=== PATIENT | female | born 1980 | race Two or more races ===

== ENCOUNTER → 2018-03-26 | Outpatient (CLI) | payer OTHER ==
[2018-03-26 09:42] LABS: ABSOLUTE BASOPHILS # (AUTO) 0.1 10^3/uL (0.0-0.2); ABSOLUTE EOSINOPHILS # (AUTO) 0.2 10^3/uL (0.0-0.6); ABSOLUTE LYMPHOCYTES (AUTO) 2.2 10^3/uL (0.5-4.7); ABSOLUTE MONOCYTES (AUTO) 0.5 10^3/uL (0.1-1.4); ABSOLUTE NEUT (AUTO) 5.1 10^3/uL (1.7-8.2); BASOPHILS % (AUTO) 0.7 % (0-2); EOSINOPHILS % (AUTO) 2.2 % (0-6); HEMATOCRIT 43.6 % (36.0-47.0); HEMOGLOBIN 15.2 g/dL (12.0-15.5); LYMPHOCYTES % (AUTO) 27.4 % (13-45); MEAN CORPUSCULAR HEMOGLOBIN 28.5 pg (27.0-33.4); MEAN CORPUSCULAR HGB CONC 34.8 g/dL (32.0-36.0); MEAN CORPUSCULAR VOLUME 82 fl (80-97); MONOCYTES % (AUTO) 5.8 % (3-13); PLATELET COUNT 300 10^3/uL (150-450); RED BLOOD COUNT 5.33 10^6/uL (3.72-5.28); RED CELL DISTRIBUTION WIDTH 13.5 % (11.5-14.0); SEGMENTED NEUTROPHILS % (AUTO) 63.9 % (42-78); TOTAL CELLS COUNTED % (AUTO) 100 %; WHITE BLOOD COUNT 7.9 10^3/uL (4.0-10.5)
[2018-03-26 10:00] LABS: ALANINE AMINOTRANSFERASE 56 U/L (9-52); ALBUMIN 4.2 g/dL (3.5-5.0); ALKALINE PHOSPHATASE 133 U/L (38-126); ANION GAP 9 (5-19); ASPARTATE AMINO TRANSFERASE 40 U/L (14-36); BILIRUBIN,DIRECT 0.2 mg/dL (0.0-0.4); BILIRUBIN,TOTAL 0.7 mg/dL (0.2-1.3); BLOOD UREA NITROGEN 10 mg/dL (7-20); CALCIUM 9.1 mg/dL (8.4-10.2); CARBON DIOXIDE 27 mmol/L (22-30); CHLORIDE 105 mmol/L (98-107); GLUCOSE 177 mg/dL (75-110); POTASSIUM 4.3 mmol/L (3.6-5.0); SODIUM 141.4 mmol/L (137-145); TOTAL PROTEIN 7.2 g/dL (6.3-8.2); TRIGLYCERIDES 163 mg/dL (<150)
[2018-03-26 10:01] LABS: CHOLESTEROL 173.44 mg/dL (0-200)
[2018-03-26 10:12] LABS: DIRECT LDL 112 mg/dL (<100)
[2018-03-26 10:17] LABS: VLDL CHOLESTEROL 32.6 mg/dL (10-31)
== END ==
LOC: OD 08:49
DX: E11.9 Type 2 diabetes mellitus without complications (principal); B18.2 Chronic viral hepatitis C
CPT/HCPCS: 36415; 80053; 80061; 81270; 83036; 84443; 85025

== ENCOUNTER 2018-11-19 22:14 | Emergency (ER) | payer OTHER ==
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
[2018-11-20 00:42] VITALS: BP 140/80
== END 2018-11-20 00:38 | disposition home or self-care (01) ==
LOC: ER 22:14
DX: S60.812A Abrasion of left wrist, initial encounter (principal); M25.532 Pain in left wrist; W50.4XXA Accidental scratch by another person, initial encounter; Y92.199 Unspecified place in other specified residential institution as the place of occurrence of the external cause; Y99.0 Civilian activity done for income or pay
CPT/HCPCS: 99283; 73110; L3908

== ENCOUNTER 2019-03-04 17:28 | Emergency (ER) | payer SELFPAY ==
[2019-03-04] MEDS ORDERED: DIPHENHYDRAMINE HCL 50 MG/ML VIAL IV ONE ×2 (18:48→22:54)
[2019-03-04] MEDS ORDERED: METOCLOPRAMIDE HCL INJ/PF 10 MG/2 ML SDV IV ONE (18:48)
[2019-03-04] MEDS ORDERED: NORMAL SALINE 1000 ML 1,000 ML IV ONE (18:48)
[2019-03-04] MEDS ORDERED: KETOROLAC TROMETHAMINE INJ/PF 30 MG/1 ML SDV IV ONE ×2 (18:48→22:55)
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
[2019-03-04 19:17] LABS: ABSOLUTE BASOPHILS # (AUTO) 0.1 10^3/uL (0.0-0.2); ABSOLUTE EOSINOPHILS # (AUTO) 0.2 10^3/uL (0.0-0.6); ABSOLUTE LYMPHOCYTES (AUTO) 2.7 10^3/uL (0.5-4.7); ABSOLUTE MONOCYTES (AUTO) 0.6 10^3/uL (0.1-1.4); ABSOLUTE NEUT (AUTO) 4.9 10^3/uL (1.7-8.2); BASOPHILS % (AUTO) 0.8 % (0-2); EOSINOPHILS % (AUTO) 2.3 % (0-6); HEMATOCRIT 46.1 % (36.0-47.0); HEMOGLOBIN 15.6 g/dL (12.0-15.5); LYMPHOCYTES % (AUTO) 31.8 % (13-45); MEAN CORPUSCULAR HEMOGLOBIN 28.1 pg (27.0-33.4); MEAN CORPUSCULAR HGB CONC 33.7 g/dL (32.0-36.0); MEAN CORPUSCULAR VOLUME 83 fl (80-97); MONOCYTES % (AUTO) 7.3 % (3-13); PLATELET COUNT 288 10^3/uL (150-450); RED BLOOD COUNT 5.54 10^6/uL (3.72-5.28); SEGMENTED NEUTROPHILS % (AUTO) 57.8 % (42-78); TOTAL CELLS COUNTED % (AUTO) 100 %; WHITE BLOOD COUNT 8.4 10^3/uL (4.0-10.5)
[2019-03-04 19:43] LABS: ALBUMIN 4.1 g/dL (3.5-5.0); ALKALINE PHOSPHATASE 131 U/L (38-126); ANION GAP 9 (5-19); ASPARTATE AMINO TRANSFERASE 22 U/L (14-36); BILIRUBIN,DIRECT 0.2 mg/dL (0.0-0.4); BILIRUBIN,TOTAL 0.3 mg/dL (0.2-1.3); BLOOD UREA NITROGEN 16 mg/dL (7-20); CALCIUM 9.4 mg/dL (8.4-10.2); CARBON DIOXIDE 25 mmol/L (22-30); CHLORIDE 105 mmol/L (98-107); GLUCOSE 280 mg/dL (75-110); POTASSIUM 4.6 mmol/L (3.6-5.0); TOTAL PROTEIN 7.3 g/dL (6.3-8.2)
--- NOTE | 2019-03-04 19:51 | RADIOLOGY REPORT (SQ) ---
EXAM DESCRIPTION: CT HEAD WITHOUT COMPLETED DATE/TIME: 03/04/2019 7:35 pm REASON FOR STUDY: severe MARCELINO, hx of TBI COMPARISON: None. TECHNIQUE: Axial images acquired through the brain without intravenous contrast. Images reviewed wi th bone, brain and subdural windows. Additional sagittal and coronal reconstructions were generated. Images stored on PACS. All CT scanners at this facility use dose modulation, iterative reconstruction, and/or weight based d osing when appropriate to reduce radiation dose to as low as reasonably achievable (ALARA). [facility]: Dose Right [facility]: CareDose [facility]: Dose Right [facility]: Teradose 4D [facility]: Smart Universal Biosensors RADIATION DOSE: CT Rad equipment meets quality standard of care and radiation dose reduction techniq ues were employed. CTDIvol: 53.2 mGy. DLP: 1044 mGy-cm. mGy. LIMITATIONS: None. FINDINGS: VENTRICLES: Normal size and contour. CEREBRUM: No masses. No hemorrhage. No midline shift. No evidence for acute infarction. Normal gra y/white matter differentiation. No areas of low density in the white matter. CEREBELLUM: No masses. No hemorrhage. No alteration of density. No evidence for acute infarction. EXTRAAXIAL SPACES: No fluid collections. No masses. ORBITS AND GLOBE: No intra- or extraconal masses. Normal contour of globe without masses. CALVARIUM: No fracture. PARANASAL SINUSES: No fluid or mucosal thickening. SOFT TISSUES: No mass or hematoma. OTHER: No other significant finding. IMPRESSION: NORMAL BRAIN CT WITHOUT CONTRAST. EVIDENCE OF ACUTE STROKE: NO. COMMENT: Quality ID # [id number]: Final reports with documentation of one or more dose reduction techniques (e.g., Automated exposure control, adjustment of the mA and/or kV according to patient size, use of iterative reconstruction technique) TECHNICAL DOCUMENTATION: JOB ID: [id number] [employer]- All Rights Reserved Reading location - IP/workstation name: [email or web address]
[2019-03-04 20:01] LABS: ERYTHROCYTE SEDIMENTATION RATE 18 mm/hr (0-20)
[2019-03-04] MEDS ORDERED: PROCHLORPERAZINE EDISYLATE INJ 10 MG/2 ML VIAL IV ONE (22:53)
--- NOTE | 2019-03-04 23:01 | ER Document Report ---
ED General - General Chief Complaint: Headache Stated Complaint: POSSIBLE MIGRAINE Time Seen by Provider: 03/04/19 18:37 Primary Care Provider: ALANNAH TURNER MD [Primary Care Provider] - Follow up as needed TRAVEL OUTSIDE OF THE [place] IN LAST 30 DAYS: No - Related Data Allergies/Adverse Reactions: morphine Allergy (Verified 11/19/18 22:50) Past Medical History - Social History Smoking Status: Never Smoker Frequency of alcohol use: None Drug Abuse: None Family History: Reviewed & Not Pertinent Patient has suicidal ideation: No Patient has homicidal ideation: No - Immunizations Immunizations up to date: Yes Physical Exam - Vital signs Vitals: Temp Pulse Resp BP Pulse Ox 98.8 F 83 18 141/82 H 98 03/04/19 17:48 03/04/19 17:48 03/04/19 17:48 03/04/19 17:48 03/04/19 17:48 - Notes Notes: Patient presents emerge department a frontal headache that is been gone for the past 3 days. Headache came on gradually got progressively worse. Is not thunderclap headache or worst headache she is ever had. She says this is worse than her typical migraines but again not the worst headache is ever had. She had a little blurry vision but no nausea vomiting fevers numbness or weakness in extremities. Ports intermittent headaches over the past 3 years after having a traumatic brain injury do not stand up quickly while taking the Flomax/Hytrin as the medicine can cause dizziness and result in a fall Please medical history sent for diabetes does not follow her sugar. She has history of hypertension. Social history does not smoke or drink LMP now review of systems pertinent positives and negatives in HPI otherwise all the systems were reviewed and acutely negative PHYSICIAN EXAM -vital signs are noted triage note and note from triage reviewed GENERAL: Well-appearing, well-nourished and in __mild distress____ HEAD: Atraumatic, normocephalic. EYES: Pupils equal round and reactive to light, extraocular movements intact, no nystagmus or photophobia sclera anicteric, conjunctiva are normal. ENT: nares patent, oropharynx clear without exudates. Moist mucous membranes. Nontender NECK: supple without lymphadenopathy or no meningeal signs LUNGS: Breath sounds clear to auscultation bilaterally and equal. No wheezes rales or rhonchi. HEART: Regular rate and rhythm without murmurs ABDOMEN: Soft, nontender, normoactive bowel sounds. EXTREMITIES: No deformity, no edema. NEUROLOGICAL: Alert and oriented x4. Cranial nerves he has symmetrical smile facies and shoulder shrug. His motor strength is 5/5 bilaterally in the upper and lower extremities. Toes downgoing. Sensation is intact to light touch and pinprick is a negative Romberg and normal gait PSYCH: Normal mood, normal affect. SKIN: Warm, Dry, normal turgor, no rashes or lesions noted. BACK-nontender in the midline Differential diagnosis migraine tension headache Course - Re-evaluation Re-evalutation: 03/05/19 00:54 ED patient is remained stable. She has significant provement of her symptoms after medications. Continues to have a nonfocal neurological exam Medical decision making patient with a history of headaches and status post medic brain injury presents with a headache similar to her previous ones. CT is negative she has a nonfocal neurological exam she is feeling better and can be discharged home advises that she will need follow-up for her blood pressure and sugar At this time there is no indication for admission. I have discussed the findings with patient/family with return precautions and follow-up emerson mmendations. Verbal discharge instructions given at the bedside and opportunity for questions given. Medication warnings were given if indicated. Patient is in agreement with this plan and has verbalized understanding of return precautions and the need for primary care follow-up as directed.. - Vital Signs Vital signs: Temp Pulse Resp BP Pulse Ox 98.8 F 83 18 141/82 H 98 03/04/19 17:48 03/04/19 17:48 03/04/19 17:48 03/04/19 17:48 03/04/19 17:48 - Laboratory Result Diagrams: 03/04/19 19:04 03/04/19 19:04 Laboratory results interpreted by me: 03/04/19 03/04/19 03/04/19 19:04 19:04 23:24 RBC 5.54 H Hgb 15.6 H Glucose 280 H POC Glucose 250 H Alkaline Phosphatase 131 H - Diagnostic Test Radiology reviewed: Reports reviewed Discharge - Discharge Clinical Impression: Headache Qualifiers: Headache type: other headache syndrome Qualified Code(s): G44.89 - Other hea dache syndrome Diabetes Qualifiers: Diabetes mellitus type: type 2 Diabetes mellitus intermodal dispatcher insulin use: without intermodal dispatcher use Condition: Stable Disposition: HOME, SELF-CARE Instructions: Intravenous Compazine for Headaches ([facility]), Headache ([facility]) Additional Instructions: Headache The physician does not feel that the headache you are experiencing has a serious underlying cause. Most headaches are due to emotional stress, with resultant muscle tension (tension headache). Occasionally, headaches are secondary to changes in the blood vessels of the scalp (vascular headache and migraine headache). Sometimes, a headache is the first symptom of another developing illness, such as a viral infection. You have no evidence of stroke, bleeding, meningitis, or other serious cause of your headache. The treatment of headaches varies with the severity and cause of the pain. Not all headaches need pain shots. In fact, there is evidence that using narcotics for headaches may make them worse in the long run. The physician will determine the therapy that's in your best interest. If you develop a fever, if the headache is different from any you've previously experienced, or if the headache progressively worsens, then call your physician at once or go to the emergency room. Your blood pressure was elevated today needs to be rechecked again in 1 to 2 weeks to determine if need to be on medication or have your medications adjusted. Untreated hypertension can cause heart attack stroke and kidney failure Your sugar was elevated today needs to be rechecked again in 1 week. You can follow-up in the care clinic Follow-up in the clinic clinic in 1 to 2 days if not better otherwise in 1 week Make sure you take Benadryl with the Compazine Prescriptions: Prochlorperazine Maleate [Compazine 5 Mg Tablet] 5 mg PO QID PRN #8 tablet PRN Reason: Forms: Elevated Blood Pressure Referrals: ALANNAH TURNER MD [Primary Care Provider] - Follow up as needed [facility] [Provider Group] - Follow up in 1 week (1 to 2 days if not better otherwise in 1 week to recheck your sugar and blood pressure)
[2019-03-05 01:25] VITALS: BP 125/67
== END 2019-03-05 01:33 | disposition home or self-care (01) ==
LOC: ER 17:28
DX: G44.89 Other headache syndrome (principal); E11.9 Type 2 diabetes mellitus without complications; Z88.6 Allergy status to analgesic agent
CPT/HCPCS: 99284; 96361; 96374; 96375; 36415; 82962; 85025; 85652; 80053; 70450; J1200; J1885; J0780; J7030

== ENCOUNTER 2019-04-09 08:17 | Emergency (ER) | payer MEDICAID ==
--- NOTE | 2019-04-09 09:32 | ER Document Report ---
HPI - HPI Time Seen by Provider: 04/09/19 09:26 Pain Level: 1 Notes: Patient is a 38-year-old female with a history of type 2 diabetes who is approximately 5 weeks presents complaining of urinary frequency over the past 2 days. Patient states that she may have a UTI and came for evaluation. Patient states that her sugars have been in the 200s which is normal for her. She is able to eat and drink without difficulty. She is urinating normally and having normal bowel movements. No other concerns or complaints at this time. She has no vaginal bleeding, odor, or discharge. No lower pelvic pain. Denies any headache, fever, neck pain, URI, sore throat, chest pain, palpitations, syncope, cough, shortness of breath, wheeze, dyspnea, abdominal pain, nausea/vomiting/diarrhea, urinary retention, hematuria, loss of control of bowel or bladder, numbness/tingling, saddle anesthesia, muscle paralysis/weakness, or rash. - ROS Systems Reviewed and Negative: Yes All other systems reviewed and negative - REPRODUCTIVE Reproductive: REPORTS: : Past Medical History - Social History Smoking Status: Never Smoker Family History: Reviewed & Not Pertinent Patient has suicidal ideation: No Patient has homicidal ideation: No Endocrine Medical History: Reports: Hx Diabetes Mellitus Type 2 Past Surgical History: Reports: Hx Section, Hx Cholecystectomy, Hx Orthopedic Surgery - Immunizations Immunizations up to date: Yes Vertical Provider Document - CONSTITUTIONAL Agree With Documented VS: Yes Notes: PHYSICAL EXAMINATION: GENERAL: Well-appearing, well-nourished and in no acute distress. HEAD: Atraumatic, normocephalic. EYES: Pupils equal round and reactive to light, extraocular movements intact, sclera anicteric, conjunctiva are normal. ENT: Nares patent and without discharge. oropharynx clear without exudates. No tonsilar hypertrophy or erythema. Moist mucous membranes. NECK: Normal range of motion, supple without lymphadenopathy LUNGS: Breath sounds clear to auscultation bilaterally and equal. No wheezes rales or rhonchi. HEART: Regular rate and rhythm without murmurs, rubs, gallops. ABDOMEN: Soft, nontender, nondistended abdomen. No guarding, no rebound. Normal bowel sounds present. No CVA tenderness bilaterally. Musculoskeletal: FROM to passive/active. Strength 5+/5. Extremities: No cyanosis, clubbing, or edema b/l. Peripheral pulses 2+. Capillary refill less than 3 seconds. NEUROLOGICAL: Normal speech, normal gait. PSYCH: Normal mood, normal affect. SKIN: Warm, Dry, normal turgor, no rashes or lesions noted. - INFECTION CONTROL TRAVEL OUTSIDE OF THE [place] IN LAST 30 DAYS: No Course - Re-evaluation Re-evalutation: 04/09/19 10:48 Patient is an afebrile, well-hydrated, 38-year-old female who presents to the ED with an acute UTI. Vitals are acceptable without any significant tachycardia, tachypnea, or hypoxia. PE is otherwise unremarkable. Patient's abdomen is soft and nontender. She has no CVA tenderness bilaterally. See urinalysis results. Urine culture is pending. No other labs or imaging warranted at this time based on H&P. Low suspicion/risk for acute appendicitis, bowel obstruction, acute cholecystitis, acute cholangitis, perforated diverticulitis, incarcerated hernia, pancreatitis, perforated ulcer, peritonitis, sepsis, pelvic inflammatory disease, ectopic , tubo-ovarian abscess, ovarian torsion, or other systemic emergent condition at this time. Patient is aware that her condition can change from initial presentation and she needs to monitor symptoms closely and seek medical attention if any acute changes. I will send her home with a prescription for Keflex. Conservative measures otherwise for symptoms. Recheck with your PCM in 3-5 days. Consider consult with a Urologist. Return to the ED with any worsening/concerning symptoms otherwise as reviewed in discharge. Patient is in agreement. - Vital Signs Vital signs: Temp Pulse Resp BP Pulse Ox 98.8 F 75 18 136/78 H 99 04/09/19 08:42 04/09/19 08:42 04/09/19 08:42 04/09/19 08:42 04/09/19 08:42 Discharge - Discharge Clinical Impression: Acute UTI (urinary tract infection) Condition: Stable Disposition: HOME, SELF-CARE Instructions: Cephalexin ([facility]), Urinary Tract Infection ([facility]) Additional Instructions: Push fluids (i.e. water, cranberry juice) Proper hygenic technique Keep the skin clean Tylenol/ibuprofen as needed Take medications as directed F/u with your PCM in 3-5 days for a recheck Consider consult with a Urologist for ongoing/worsening symptoms. Return to the ED with any worsening symptoms and/or development of fever, headache, chest pain, palpitations, syncope, shortness of breath, trouble breathing, abdominal pain, n/v/d, blood in stool/urine, loss of control of bowel/bladder, urinary retention, or other worsening symptoms that are concerning to you. Prescriptions: Cephalexin Monohydrate [Keflex 500 mg Capsule] 500 mg PO TID #21 capsule Forms: Elevated Blood Pressure Referrals: ALANNAH TURNER MD [Primary Care Provider] - Follow up as needed [facility] [Provider Group] - Follow up as needed
[2019-04-09 10:43] LABS: APPEARANCE,URINE SLIGHTLY-CLOUDY; BILIRUBIN,URINE NEGATIVE (NEGATIVE); COLOR,URINE YELLOW; GLUCOSE, URINE >=500 mg/dL (NEGATIVE); KETONES,URINE 20 mg/dL (NEGATIVE); LEUKOCYTE ESTERASE,URINE MODERATE (NEGATIVE); NITRITE,URINE POSITIVE (NEGATIVE); PROTEIN,URINE NEGATIVE (NEGATIVE); URINE SPECIFIC GRAVITY 1.017; UROBILINOGEN,URINE NEGATIVE mg/dL (<2.0)
[2019-04-09 11:04] VITALS: BP 134/82
== END 2019-04-09 10:57 | disposition home or self-care (01) ==
LOC: ER 08:17
DX: N39.0 Urinary tract infection, site not specified (principal); E11.9 Type 2 diabetes mellitus without complications; Z90.49 Acquired absence of other specified parts of digestive tract
CPT/HCPCS: 81001; 82962; 87086; 87088; 87186; 99283

== ENCOUNTER 2019-06-02 14:57 | Emergency (ER) | payer MEDICAID ==
--- NOTE | 2019-06-02 15:40 | ER Document Report ---
ED GI/ - General Chief Complaint: Vaginal Bleeding Stated Complaint: VAGINAL BLEEDING/12 WEEKS Time Seen by Provider: 06/02/19 15:13 Primary Care Provider: [facility] [Provider Group] - Follow up as needed Mode of Arrival: Ambulatory Information source: Patient Notes: 39-year-old female presented to ED for complaint of vaginal bleeding and pr egnancy. She states she is 12 weeks 6 para 4. She states the bleeding started just before coming to the emergency room. She states she is not having any pain at all she is just having bleeding. She states she was seen about 3 weeks ago and had a ultrasound but she is concerned due to the amount of bleeding. She is alert oriented respirations regular nonlabored speaking in ful l sentences. TRAVEL OUTSIDE OF THE [place] 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 : 6 Para: 4 OB ultrasound done: Yes Associated symptoms: Other - No bleeding Exacerbated by: Denies Relieved by: Denies Similar symptoms previously: Yes Recently seen / treated by doctor: Yes - Related Data Allergies/Adverse Reactions: morphine Allergy (Verified 04/09/19 09:19) Home Medications: Metformin Past Medical History - General Information source: Patient - Social History Smoking Status: Never Smoker Frequency of alcohol use: None Drug Abuse: None Lives with: Family Family History: Reviewed & Not Pertinent Patient has suicidal ideation: No Patient has homicidal ideation: No - Past Medical History Cardiac Medical History: Reports: None Pulmonary Medical History: Reports: None EENT Medical History: Reports: None Endocrine Medical History: Reports: Hx Diabetes Mellitus Type 2 Renal/ Medical History: Reports: None Malignancy Medical History: Reports: None GI Medical History: Reports: None Musculoskeletal Medical History: Reports Hx Musculoskeletal Deformity Skin Medical History: Reports None Psychiatric Medical History: Reports: None Traumatic Medical History: Reports: None Infectious Medical History: Reports: None Past Surgical History: Reports: Hx Section, Hx Cholecystectomy, Hx Orthopedic Surgery - Coello's cyst - Immunizations Immunizations up to date: Yes Review of Systems - Review of Systems Constitutional: No symptoms reported EENT: No symptoms reported Cardiovascular: No symptoms reported Respiratory: No symptoms reported Gastrointestinal: No symptoms reported Genitourinary: No symptoms reported Female Genitourinary: , Vaginal bleeding Musculoskeletal: No symptoms reported Skin: No symptoms reported Hematologic/Lymphatic: No symptoms reported Neurological/Psychological: No symptoms reported Physical Exam - Vital signs Vitals: Temp Pulse Resp BP Pulse Ox 98.1 F 88 16 117/82 99 06/02/19 15:00 06/02/19 15:00 06/02/19 15:00 06/02/19 15:00 06/02/19 15:00 Interpretation: Normal - General General appearance: Appears well, Alert - HEENT Head: Normocephalic, Atraumatic Eyes: Normal Pupils: PERRL - Respiratory Respiratory status: No respiratory distress Chest status: Nontender Breath sounds: Normal Chest palpation: Normal - Cardiovascular Rhythm: Regular Heart sounds: Normal auscultation Murmur: No - Abdominal Inspection: Normal Distension: No distension Bowel sounds: Normal Tenderness: Nontender Organomegaly: No organomegaly - Back Back: Normal, Nontender - Extremities General upper extremity: Normal inspection, Nontender, Normal color, Normal ROM, Normal temperature General lower extremity: Normal inspection, Nontender, Normal color, Normal ROM, Normal temperature, Normal weight bearing. No: Jason's sign - Neurological Neuro grossly intact: Yes Cognition: Normal Orientation: AAOx4 Abilio Coma Scale Eye Opening: Spontaneous Abilio Coma Scale Verbal: Oriented Kirk Coma Scale Motor: Obeys Commands Kirk Coma Scale Total: 15 Speech: Normal Motor strength normal: LUE, RUE, LLE, RLE Sensory: Normal - Psychological Associated symptoms: Normal affect, Normal mood - Skin Skin Temperature: Warm Skin Moisture: Dry Skin Color: Normal Course - Re-evaluation Re-evalutation: 06/03/19 01:15 Labs and ultrasound were discussed with patient and written report of labs and ultrasound given to patient before discharge. 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 Patient ultra sound does show a live intrauterine . - Vital Signs Vital signs: Temp Pulse Resp BP Pulse Ox 97.7 F 84 17 130/80 H 98 06/02/19 18:49 06/02/19 18:49 06/02/19 18:49 06/02/19 18:49 06/02/19 18:49 - Laboratory Result Diagrams: 06/02/19 16:47 06/02/19 16:47 Laboratory results interpreted by me: 06/02/19 06/02/19 06/02/19 15:35 16:47 16:47 RDW 14.4 H Sodium 136.2 L Chloride 111 H Carbon Dioxide 17 L Creatinine 0.37 L Beta HCG, Quant 48995.00 H Urine Protein 100 H Urine Glucose (UA) 50 H Urine Ketones 20 H Urine Blood LARGE H Urine Urobilinogen 2.0 H - Diagnostic Test Radiology reviewed: Image reviewed, Reports reviewed Discharge - Discharge Clinical Impression: Vaginal bleeding affecting early , Herpes Condition: Stable Disposition: HOME, SELF-CARE Additional Instructions: : You are . care is best started as early in as possible. If you're unsure about continuing this , you should discuss this with your physician or with water filterer helper at [facility]. You should take only medications approved by your physician. Acetaminophen can safely be taken for minor pains. As a rule, medication for chronic conditions such as asthma or seizures can safely be continued. You should discuss with the physician every medicine you take. Any regular exercise program can be continued. Talk to your physician, however, before engaging in competitive or demanding sports. Alcohol, smoking, and "street drugs" are dangerous to your baby. Cocaine is especially dangerous. Don't use any illicit drugs! BLEEDING DURING EARLY : You have been evaluated for passing blood while . While we take this symptom very seriously, most women with your degree of bleeding will go on to have a perfectly normal baby. At this time, there is no indication that a miscarriage will occur. (A miscarriage occurs when the fetus is abnormal. There is no medicine or treatment to prevent it.) A more serious cause of bleeding is tubal (or ectopic) . An ultrasound usually can show whether the is in the uterus or in the tube. Sometimes in early , no fetus is seen. In this case, careful fol low-up, including repeat blood tests and repeat ultrasound, is necessary. Do not douche or have sex for at least a week, or until OK'd by the doctor. Don't use tampons. Call the doctor or return for re-examination if there is an increase in bleeding or cramping, extreme weakness, fainting, new abdominal pain, fever, or passage of tissue. Your rash looks to be a herpetic rash. I have started you on Valtrex. Please take 1000 mg 3 times a day for 7 days. I have sent the prescription to the pharmacy you selected. FOLLOW-UP CARE: If you have been referred to a physician for follow-up care, call the physicians office for an appointment as you were instructed or within the next two days. If you experience worsening or a significant change in your symptoms (very heavy bleeding with large clots of blood, passage of tissue, more severe abdominal / pelvic pain or cramping, feeling faint or severe weakness, fever, etc.), notify the physician immediately or return to the Emergency Department at any time for re-evaluation. OBSTETRIC-GYNECOLOGIC (OB-PROFESSOR OF NURSING) PHYSICIANS IN [place]: [facility] [address] [place] [address] [phone] Prescriptions: Valacyclovir HCl [Valtrex] 1,000 mg PO TID #21 tablet Forms: Return to Work, Elevated Blood Pressure Referrals: [facility] [Provider Group] - Follow up as needed
[2019-06-02 16:26] LABS: BILIRUBIN,URINE NEGATIVE (NEGATIVE); GLUCOSE, URINE 50 mg/dL (NEGATIVE); KETONES,URINE 20 mg/dL (NEGATIVE); PROTEIN,URINE 100 mg/dL (NEGATIVE); URINE SPECIFIC GRAVITY 1.029
[2019-06-02 16:27] LABS: APPEARANCE,URINE TURBID; COLOR,URINE RED
[2019-06-02 16:51] LABS: BACTERIA (WET MOUNT) 4+ BACTERIA SEEN; EPITHELIALS (WET MOUNT) 3+ EPITHELIALS SEEN; RBCS (WET MOUNT) 2+ RBCS SEEN; T.VAGINALIS (WET MOUNT) NO TRICHOMONAS SEEN; WBCS (WET MOUNT) 3+ WBCS SEEN; YEAST (WET MOUNT) NO YEAST SEEN
[2019-06-02 17:07] LABS: ABSOLUTE EOSINOPHILS # (AUTO) 0.1 10^3/uL (0.0-0.6); ABSOLUTE MONOCYTES (AUTO) 0.6 10^3/uL (0.1-1.4); ABSOLUTE NEUT (AUTO) 6.6 10^3/uL (1.7-8.2); BASOPHILS % (AUTO) 0.3 % (0-2); EOSINOPHILS % (AUTO) 1.4 % (0-6); HEMATOCRIT 41.7 % (36.0-47.0); HEMOGLOBIN 14.6 g/dL (12.0-15.5); LYMPHOCYTES % (AUTO) 21.1 % (13-45); MEAN CORPUSCULAR HEMOGLOBIN 29.3 pg (27.0-33.4); MEAN CORPUSCULAR HGB CONC 35.1 g/dL (32.0-36.0); MEAN CORPUSCULAR VOLUME 84 fl (80-97); MONOCYTES % (AUTO) 6.5 % (3-13); PLATELET COUNT 252 10^3/uL (150-450); RED BLOOD COUNT 4.99 10^6/uL (3.72-5.28); RED CELL DISTRIBUTION WIDTH 14.4 % (11.5-14.0); SEGMENTED NEUTROPHILS % (AUTO) 70.7 % (42-78); TOTAL CELLS COUNTED % (AUTO) 100 %; WHITE BLOOD COUNT 9.4 10^3/uL (4.0-10.5)
--- NOTE | 2019-06-02 17:08 | RADIOLOGY REPORT (SQ) ---
EXAM DESCRIPTION: U/S OB TRANSVAGINAL W/O DOP IMAGES COMPLETED DATE/TIME: 06/02/2019 4:30 pm REASON FOR STUDY: vag bleed preg COMPARISON: None. TECHNIQUE: Transvaginal static and realtime grayscale images acquired of the pelvis. Additional isaias cted spectral and color Doppler images recorded. All images stored on PACs. bHCG: Not available. CLINICAL DATES: NICOLE: 12/10/2019. EGA: 03/05/2019. LIMITATIONS: None. FINDINGS: FETUS: Single Living intrauterine . ULTRASOUND EGA: 13 weeks 1 day ULTRASOUND NICOLE: 12/07/2019 EFW: Not applicable less than 20 weeks. CRL: 6.54 cm FHR: 160 beats per minute. SURVEY: No visualized anomalies. AMNIOTIC FLUID: Adequate amount. PLACENTA: Not yet developed due to early gestation. SUBCHORIONIC BLEED: No. SIZE OF BLEED: Not applicable. UTERUS: The uterus measures 12.2 x 7.6 x 11.7 cm. No masses. No anomalies. CERVICAL LENGTH: 3.6 cm. Closed. Nabothian cyst in the cervix region. RIGHT ADNEXA: Not visualized due to overlying bowel gas. LEFT ADNEXA: The left ovary measures 3.3 x 2.4 x 3.5 cm. A complex 1.6 x 1.5 x 1.8 cm ovarian cyst may represent corpus luteum cyst of . No free fluid. Normal vascular flow. FREE FLUID: None. OTHER: No other significant finding. IMPRESSION: LIVING INTRAUTERINE . EGA: 13 weeks 1 day Additional findings as above. Trimester of : Second trimester - 13 weeks 1 day to 27 weeks 6 days. TECHNICAL DOCUMENTATION: JOB ID: [id number] [employer]- All Rights Reserved rev Reading location - IP/workstation name: SHA
[2019-06-02 17:24] LABS: ALBUMIN 3.7 g/dL (3.5-5.0); ALKALINE PHOSPHATASE 90 U/L (38-126); ANION GAP 8 (5-19); ASPARTATE AMINO TRANSFERASE 23 U/L (14-36); BILIRUBIN,TOTAL 0.3 mg/dL (0.2-1.3); BLOOD UREA NITROGEN 10 mg/dL (7-20); CALCIUM 8.9 mg/dL (8.4-10.2); CARBON DIOXIDE 17 mmol/L (22-30); CHLORIDE 111 mmol/L (98-107); GLUCOSE 106 mg/dL (75-110); POTASSIUM 3.8 mmol/L (3.6-5.0); TOTAL PROTEIN 6.5 g/dL (6.3-8.2)
[2019-06-02 18:21] LABS: CHLAM PCR NOT DETECTED (NOT DETECT)
[2019-06-02 18:50] VITALS: BP 130/80
[2019-06-02] MEDS ORDERED: VALACYCLOVIR HCL 500 MG TABLET PO ONE (18:51)
== END 2019-06-02 18:57 | disposition home or self-care (01) ==
LOC: ER 14:57
DX: O98.511 Other viral diseases complicating pregnancy, first trimester (principal); B00.9 Herpesviral infection, unspecified; O20.9 Hemorrhage in early pregnancy, unspecified; E11.9 Type 2 diabetes mellitus without complications; Z3A.12 12 weeks gestation of pregnancy; Z79.84 Long term (current) use of oral hypoglycemic drugs; Z90.49 Acquired absence of other specified parts of digestive tract
CPT/HCPCS: 99284; 86900; 86901; 36415; 87210; 84702; 85025; 80053; 81001; 87491; 87591; 76817; J3490

== ENCOUNTER 2019-08-03 11:57 | Outpatient (CLI) | payer MEDICAID ==
[2019-08-03 12:32] LABS: BACTERIA (WET MOUNT) 4+ BACTERIA SEEN; EPITHELIALS (WET MOUNT) 4+ EPITHELIALS SEEN; T.VAGINALIS (WET MOUNT) NO TRICHOMONAS SEEN; WBCS (WET MOUNT) 1+ WBCS SEEN; YEAST (WET MOUNT) NO YEAST SEEN
[2019-08-03 12:46] LABS: COLOR,URINE YELLOW
[2019-08-03 12:47] LABS: APPEARANCE,URINE CLEAR; BILIRUBIN,URINE NEGATIVE (NEGATIVE); GLUCOSE, URINE NEGATIVE (NEGATIVE); KETONES,URINE 25 mg/dL (NEGATIVE); LEUKOCYTE ESTERASE,URINE NEGATIVE (NEGATIVE); NITRITE,URINE NEGATIVE (NEGATIVE); PROTEIN,URINE NEGATIVE (NEGATIVE); URINE SPECIFIC GRAVITY 1.015; UROBILINOGEN,URINE NEGATIVE mg/dL (<2.0)
[2019-08-03 12:56] LABS: URINE AMPHETAMINES SCREEN NEGATIVE; URINE BARBITURATES SCREEN NEGATIVE; URINE BENZODIAZEPINES SCREEN NEGATIVE; URINE COCAINE SCREEN NEGATIVE; URINE MARIJUANA (THC) SCREEN NEGATIVE; URINE METHADONE SCREEN NEGATIVE; URINE PHENCYCLIDINE SCREEN NEGATIVE
== END 2019-08-03 13:09 | disposition home or self-care (01) ==
LOC: LC 11:57
PROVIDERS: ATTEND Obstetrics & Gynecology
DX: O23.592 Infection of other part of genital tract in pregnancy, second trimester (principal); B96.89 Other specified bacterial agents as the cause of diseases classified elsewhere; Z3A.22 22 weeks gestation of pregnancy
CPT/HCPCS: 80307; 81001; 87210

== ENCOUNTER 2019-10-07 23:47 | Outpatient (CLI) | payer MEDICAID ==
[2019-10-08 00:32] LABS: APPEARANCE,URINE CLOUDY; BILIRUBIN,URINE NEGATIVE (NEGATIVE); COLOR,URINE YELLOW; GLUCOSE, URINE NEGATIVE (NEGATIVE); KETONES,URINE TRACE mg/dL (NEGATIVE); LEUKOCYTE ESTERASE,URINE SMALL (NEGATIVE); NITRITE,URINE NEGATIVE (NEGATIVE); PROTEIN,URINE 30 mg/dL (NEGATIVE); URINE SPECIFIC GRAVITY 1.026
[2019-10-08] MEDS ORDERED: ACETAMINOPHEN 325 MG TABLET PO ONE (00:32)
[2019-10-08] MEDS ORDERED: ACETAMINOPHEN 325 MG TABLET ONE (00:33)
[2019-10-08 00:49] LABS: URINE AMPHETAMINES SCREEN NEGATIVE; URINE BARBITURATES SCREEN NEGATIVE; URINE BENZODIAZEPINES SCREEN NEGATIVE; URINE COCAINE SCREEN NEGATIVE; URINE MARIJUANA (THC) SCREEN NEGATIVE; URINE METHADONE SCREEN NEGATIVE; URINE PHENCYCLIDINE SCREEN NEGATIVE
[2019-10-08] MEDS ORDERED: BUTALB/ACETAMINOPHEN/CAFFEINE 1 TAB EACH ONE (01:24)
== END 2019-10-08 02:32 | disposition home or self-care (01) ==
LOC: LC 23:47
PROVIDERS: ATTEND Obstetrics & Gynecology
DX: Z34.93 Encounter for supervision of normal pregnancy, unspecified, third trimester (principal)
CPT/HCPCS: 81001; 80307; 59899; J3490 ×2

== ENCOUNTER 2019-10-24 10:45 | Outpatient (CLI) | payer MEDICAID ==
[2019-10-24 11:21] LABS: T.VAGINALIS (WET MOUNT) NO TRICHOMONAS SEEN; WBCS (WET MOUNT) RARE WBCS SEEN; YEAST (WET MOUNT) NO YEAST SEEN
[2019-10-24 11:34] LABS: APPEARANCE,URINE CLOUDY; BILIRUBIN,URINE NEGATIVE (NEGATIVE); COLOR,URINE AMBER; GLUCOSE, URINE NEGATIVE (NEGATIVE); KETONES,URINE NEGATIVE (NEGATIVE); LEUKOCYTE ESTERASE,URINE LARGE (NEGATIVE); NITRITE,URINE NEGATIVE (NEGATIVE); PROTEIN,URINE 30 mg/dL (NEGATIVE); URINE SPECIFIC GRAVITY 1.025
[2019-10-24 11:48] LABS: URINE AMPHETAMINES SCREEN NEGATIVE; URINE BARBITURATES SCREEN NEGATIVE; URINE BENZODIAZEPINES SCREEN NEGATIVE; URINE COCAINE SCREEN NEGATIVE; URINE MARIJUANA (THC) SCREEN NEGATIVE; URINE METHADONE SCREEN NEGATIVE; URINE PHENCYCLIDINE SCREEN NEGATIVE
[2019-10-24] MEDS ORDERED: CEFTRIAXONE INJ 1000 MG VIAL IV ONE (11:48)
[2019-10-24] MEDS ORDERED: RINGERS SOLUTION,LACTATED 1,000 ML IV PRN (11:48)
[2019-10-24] MEDS ORDERED: CEFTRIAXONE INJ 1000 MG VIAL ONE (11:55)
[2019-10-24] MEDS ORDERED: OXYCODONE-ACETAMINOPHEN 5-325 MG TABLET ONE (11:56)
[2019-10-24] MEDS ORDERED: CEFTRIAXONE 1 GM/D5W RTU 1 GM/50 ML RTUPB IV ONE (12:00)
[2019-10-24] MEDS: OXYCODONE-ACETAMINOPHEN 5-325 MG TABLET PO ONE ×2 (12:17→12:42)
[2019-10-24] MEDS ORDERED: PROMETHAZINE HCL INJ 25 MG/1 ML VIAL IV ONE (12:19)
[2019-10-24] MEDS ORDERED: PROMETHAZINE HCL INJ 25 MG/1 ML VIAL ONE (12:20)
[2019-10-24 12:54] LABS: CHLAM PCR NOT DETECTED (NOT DETECT)
--- NOTE | 2019-10-24 13:58 | L&D Progress Notes ---
PROGRESS NOTES Datetime Report Generated by CPN: 10/24/2019 13:58 PROGRESS NOTE Impression Other: Abdominal pain Plan: Discharge Vital Signs : Reviewed Comment: She presents with uterine contraction pains. Her pain worsens with walking and she feels better now. Her gallbladder has been removed. Abdomen is soft and gravid. We will take her off work. Fhr looks good for 33 wk . She has had percocet and phenergan here. Will treat for uti with macrobid. Followup on Friday. VAGINAL EXAM Dilatation: closed Effacement: thick Station: high FETUS A FHR - Baseline: 120 SIGNATURE SIGNATURE: [id number] Signature: with User ID: [email or web address]
[2019-10-24] MEDS ORDERED: FAMOTIDINE 40 MG/5 ML SUSP 50 ML PO ONE (14:33)
[2019-10-24] MEDS ORDERED: FAMOTIDINE 20 MG TABLET ONE (14:45)
[2019-10-24] MEDS ORDERED: MAG HYDROX/AL HYDROX/SIMETH SUSP 30 ML UDCUP ONE (14:45)
[2019-10-24] MEDS ORDERED: MAG HYDROX/AL HYDROX/SIMETH SUSP 30 ML UDCUP PO ONE (15:00)
[2019-10-24] MEDS ORDERED: FAMOTIDINE 20 MG TABLET PO ONE (15:00)
[2019-10-24] MEDS ORDERED: LIDOCAINE 2% VISCOUS SOLN 15 ML UDCUP PO ONE (15:00)
--- NOTE | 2019-10-24 15:33 | Non Stress Test Report ---
Non Stress Test Datetime Report Generated by CPN: 10/24/2019 15:33 DEMOGRAPHIC Test Number: 1 EGA NST: 33.2 INDICATION Indication for Study (NST) Other: NST for labor check MONITORING Monitor Explained: Monitor Explained; Test Explained; Patient Verbalized Understanding Time on Monitor: 10/24/2019 13:30 Time off Monitor: 10/24/2019 15:18 NST Duration: 108 NST INTERVENTIONS NST Interventions: PO Hydration; Reposition Patient Physician Notified NST: Dr. Simith BABY A: [id number] BABY A Movement : Present Contraction Frequency : rare FHR Baseline : 135 Accelerations : 15X15 Decelerations : Variable Variability : Moderate 6-25bpm NST Review: Meets Criteria for Reactive NST NST Review and Verified By : Skip Chopra RN NST Results: Reactive NST COMMENTS NST Comments: MD on unit reviewing FHT strip NST REPORT Report Trigger: Send Report
== END 2019-10-24 15:30 | disposition home or self-care (01) ==
LOC: LC 10:45
PROVIDERS: ATTEND Obstetrics & Gynecology
DX: O23.43 Unspecified infection of urinary tract in pregnancy, third trimester (principal); O47.03 False labor before 37 completed weeks of gestation, third trimester; O36.8330 Maternal care for abnormalities of the fetal heart rate or rhythm, third trimester, not applicable or unspecified; O24.913 Unspecified diabetes mellitus in pregnancy, third trimester; O09.523 Supervision of elderly multigravida, third trimester; Z3A.33 33 weeks gestation of pregnancy; Z88.6 Allergy status to analgesic agent
CPT/HCPCS: 59025; 87210; 82962; 81001; 80307; 87491; 87591; J3490 ×3; J2550; J0696

== ENCOUNTER 2019-10-26 14:54 | Outpatient (CLI) | payer MEDICAID ==
[2019-10-26 15:51] LABS: APPEARANCE,URINE SLIGHTLY-CLOUDY; BILIRUBIN,URINE NEGATIVE (NEGATIVE); COLOR,URINE YELLOW; GLUCOSE, URINE NEGATIVE (NEGATIVE); KETONES,URINE 80 mg/dL (NEGATIVE); LEUKOCYTE ESTERASE,URINE SMALL (NEGATIVE); NITRITE,URINE NEGATIVE (NEGATIVE); PROTEIN,URINE 30 mg/dL (NEGATIVE); URINE SPECIFIC GRAVITY 1.023
[2019-10-26 15:54] LABS: ABSOLUTE BASOPHILS # (AUTO) 0.1 10^3/uL (0.0-0.2); ABSOLUTE EOSINOPHILS # (AUTO) 0.1 10^3/uL (0.0-0.6); ABSOLUTE LYMPHOCYTES (AUTO) 1.5 10^3/uL (0.5-4.7); ABSOLUTE MONOCYTES (AUTO) 0.7 10^3/uL (0.1-1.4); ABSOLUTE NEUT (AUTO) 5.3 10^3/uL (1.7-8.2); BASOPHILS % (AUTO) 0.7 % (0-2); EOSINOPHILS % (AUTO) 1.2 % (0-6); HEMOGLOBIN 13.4 g/dL (12.0-15.5); LYMPHOCYTES % (AUTO) 19.7 % (13-45); MEAN CORPUSCULAR HEMOGLOBIN 29.9 pg (27.0-33.4); MEAN CORPUSCULAR HGB CONC 34.3 g/dL (32.0-36.0); MEAN CORPUSCULAR VOLUME 87 fl (80-97); MONOCYTES % (AUTO) 8.7 % (3-13); PLATELET COUNT 221 10^3/uL (150-450); RED BLOOD COUNT 4.48 10^6/uL (3.72-5.28); RED CELL DISTRIBUTION WIDTH 13.8 % (11.5-14.0); SEGMENTED NEUTROPHILS % (AUTO) 69.7 % (42-78); TOTAL CELLS COUNTED % (AUTO) 100 %; WHITE BLOOD COUNT 7.6 10^3/uL (4.0-10.5)
[2019-10-26 16:13] LABS: URINE AMPHETAMINES SCREEN NEGATIVE; URINE BARBITURATES SCREEN NEGATIVE; URINE BENZODIAZEPINES SCREEN NEGATIVE; URINE COCAINE SCREEN NEGATIVE; URINE MARIJUANA (THC) SCREEN NEGATIVE; URINE METHADONE SCREEN NEGATIVE; URINE PHENCYCLIDINE SCREEN NEGATIVE
[2019-10-26 16:13] LABS: ALBUMIN 3.2 g/dL (3.5-5.0); ALKALINE PHOSPHATASE 124 U/L (38-126); ANION GAP 11 (5-19); ASPARTATE AMINO TRANSFERASE 18 U/L (14-36); BILIRUBIN,DIRECT 0.2 mg/dL (0.0-0.4); BILIRUBIN,TOTAL 0.4 mg/dL (0.2-1.3); BLOOD UREA NITROGEN 8 mg/dL (7-20); CALCIUM 8.2 mg/dL (8.4-10.2); CARBON DIOXIDE 16 mmol/L (22-30); CHLORIDE 110 mmol/L (98-107); GLUCOSE 70 mg/dL (75-110); POTASSIUM 3.7 mmol/L (3.6-5.0); TOTAL PROTEIN 5.8 g/dL (6.3-8.2); URIC ACID 3.7 mg/dL (2.5-7.0)
[2019-10-26 16:17] LABS: UR PRO/CREAT RATIO RESULT 0.1 mg/mg (0.0-0.2); URINE CREATININE 114.5 mg/dL (15-278); URINE PROTEIN 13.6 mg/dL (<12)
== END 2019-10-26 16:40 | disposition home or self-care (01) ==
LOC: LC 14:54
PROVIDERS: ATTEND Obstetrics & Gynecology
DX: O26.893 Other specified pregnancy related conditions, third trimester (principal); Z3A.33 33 weeks gestation of pregnancy; E86.0 Dehydration
CPT/HCPCS: 36415; 59025; 80053; 80307; 81001; 82570; 83615; 84156; 84550; 85025

== ENCOUNTER 2019-11-21 04:01 | Inpatient (IN) | payer MEDICAID ==
[2019-11-21 04:33] LABS: APPEARANCE,URINE SLIGHTLY-CLOUDY; BILIRUBIN,URINE NEGATIVE (NEGATIVE); COLOR,URINE YELLOW; GLUCOSE, URINE NEGATIVE (NEGATIVE); KETONES,URINE NEGATIVE (NEGATIVE); LEUKOCYTE ESTERASE,URINE LARGE (NEGATIVE); NITRITE,URINE NEGATIVE (NEGATIVE); PROTEIN,URINE 30 mg/dL (NEGATIVE); URINE SPECIFIC GRAVITY 1.023; UROBILINOGEN,URINE NEGATIVE mg/dL (<2.0)
[2019-11-21] MEDS ORDERED: MISOPROSTOL 0.2 MG TABLET ONE (04:41)
[2019-11-21] MEDS ORDERED: OXYTOCIN/0.9 % SODIUM CHLORIDE 30 UNIT/500 ML RTUINJ ONE ×2 (04:41→12:35)
[2019-11-21] MEDS ORDERED: LIDOCAINE 1% INJ-PF (10 MG/ML) 30 ML SDV ONE (04:41)
[2019-11-21] MEDS: RINGERS SOLUTION,LACTATED 1,000 ML IV PRN ×4 (04:52→21:09)
[2019-11-21 04:53] LABS: URINE AMPHETAMINES SCREEN NEGATIVE; URINE BARBITURATES SCREEN NEGATIVE; URINE BENZODIAZEPINES SCREEN NEGATIVE; URINE COCAINE SCREEN NEGATIVE; URINE MARIJUANA (THC) SCREEN NEGATIVE; URINE METHADONE SCREEN NEGATIVE; URINE PHENCYCLIDINE SCREEN NEGATIVE
[2019-11-21 05:18] LABS: ABSOLUTE BASOPHILS # (AUTO) 0.1 10^3/uL (0.0-0.2); ABSOLUTE EOSINOPHILS # (AUTO) 0.2 10^3/uL (0.0-0.6); ABSOLUTE LYMPHOCYTES (AUTO) 1.5 10^3/uL (0.5-4.7); ABSOLUTE MONOCYTES (AUTO) 0.6 10^3/uL (0.1-1.4); ABSOLUTE NEUT (AUTO) 6.3 10^3/uL (1.7-8.2); BASOPHILS % (AUTO) 0.7 % (0-2); EOSINOPHILS % (AUTO) 1.8 % (0-6); HEMATOCRIT 37.5 % (36.0-47.0); HEMOGLOBIN 13.1 g/dL (12.0-15.5); LYMPHOCYTES % (AUTO) 17.6 % (13-45); MEAN CORPUSCULAR HEMOGLOBIN 30.3 pg (27.0-33.4); MEAN CORPUSCULAR HGB CONC 34.8 g/dL (32.0-36.0); MEAN CORPUSCULAR VOLUME 87 fl (80-97); MONOCYTES % (AUTO) 6.6 % (3-13); PLATELET COUNT 199 10^3/uL (150-450); RED BLOOD COUNT 4.32 10^6/uL (3.72-5.28); RED CELL DISTRIBUTION WIDTH 14.1 % (11.5-14.0); SEGMENTED NEUTROPHILS % (AUTO) 73.3 % (42-78); TOTAL CELLS COUNTED % (AUTO) 100 %; WHITE BLOOD COUNT 8.6 10^3/uL (4.0-10.5)
--- NOTE | 2019-11-21 06:54 | Admission Physical ---
Datetime Report Generated by CPN: 11/21/2019 06:53 CURRENT ADMISSION Chief Complaint: Uterine Contractions; Suspected Ruptured Membranes Indication for Induction: PROM Admit Impression : Term, Intrauterine ; No Active Labor; Ruptured Membranes; Admit Impression- Other: G1 was emergent c/section and had PPH "I arrested after the c/section and woke up in the ICU." Has had 2 successful since Admit Plan: Admit to Unit; Initiate Labor Induction Protocol; Initiate Protocol ALLERGIES Medication Allergies: Yes Medication Allergies: morphine (10/26/2019) Latex: No Latex Allergies OBSTETRICAL HISTORY EDC: 12/10/2019 00:00 : 6 Para: 4 Term: 2 : 2 SAB: 1 IAB: 0 Ectopic: 0 Livin Cesareans: 1 VBACs: 2 Multiple Births: 0 Gestational Diabetes: Yes Rh Sensitization: No Incompetent Cervix: No LUIS: No Infertility: No ART Treatment: No Uterine Anomaly: No IUGR: No Hx Previous C/S: Yes Macrosomia: No Hx Loss/Stillborn: No PIH: Yes Hx : No Placenta Previa/Abruption: No Depression/PP Depression: No PTL/PROM: Yes Post Hemorrhage: Yes Current Procedures: Ultrasound Obstetrical History Comments: G1: 1999, , male, pre-eclampsia @ 31/32 weeks G2: 2003, emergency c/s @ 35 weeks, male, NRFHTs, hemorrhage and cardiac arrest, infection in c/s wound G3: 2005, , male @ 37 weeks G4: 2008, , female @ 40 weeks, precip delivery in [facility], GDM (BTL???) G5: 2011, SAB G6: current, type 2 diabetic SEE RECORDS Alcohol: No Marijuana : No Cocaine: No Other Illicit Drugs: No Cigarettes: Never Smoker. [id number] Cigarette Comments: 0 MEDICAL HISTORY Diabetes: Yes Diabetes Type: Type II - NIDDM Blood Transfusion: Yes Pulmonary Disease (Asthma, TB): No Breast Disease: No Hypertension: Yes Crew Person Surgery: No Heart Disease: No Hosp/Surgery: Yes Autoimmune Disorder: No Anesthetic Complications: Yes Kidney Disease: No Abnormal Pap Smear: No Neuro/Epilepsy: Other Medical Diseases: No Significant Family History: No Trauma/Violence : No Medical History Comments: AMA, shingles during ; gallbladder removal; comes out of anesthesia "violently" INFECTIOUS HISTORY Gonorrhea: No Genital Herpes: No Chlamydia: No Tuberculosis: No Syphilis: No Hepatitis: No HIV/AIDS Exposure: No Rash or Viral Illness: No HPV: Yes Infectious History Comments: hep C + PHYSICAL EXAM General: Normal HEENT: Normal Neurologic: Normal Thyroid: Normal Heart: Normal Lungs: Normal Breast: Normal Back: Normal Abdomen: Normal Genitourinary Exam: Normal Extremities: Normal DTRs: Normal Pelvic Type: Adequate Physical Exam Comments: SOLOMON confirmed with bedside sono performed by me to confirm ROM Vital Signs: Reviewed; Within Normal Limits VAGINAL EXAM Dilatation: 1 Effacement: 25 Station: -3 MEMBRANES Pooling: Negative Membranes: Ruptured Amniotic Fluid Color: Clear FETUS A EGA: 37.2 Monitoring: External US FHR- Baseline: 130 Variability: Moderate 6-25bpm Accelerations: 15X15 Decelerations: None FHR Category: Category I Estimated Weight (gm): 3400 Presentation: Vertex Admit Comment: proceed with planned with 1x1 pitocin and roldan bulb if no cervical change. PLANS FOR LABOR AND DELIVERY Labor and Delivery: None Pain Management: Epidural Feeding Preference: Both Benefit of Breast Feed Discussed: Yes Circumcision: Yes INFORMED CONSENT Signature: with User ID: [email or web address]
[2019-11-21] MEDS ORDERED: GLUCAGON,HUMAN RECOMB 1 MG INJ IM PRN ×2 (07:26→07:31)
[2019-11-21] MEDS ORDERED: DEXTROSE 50%-WATER 25 GM/50 ML DISP.SYRIN IV PRN ×4 (07:26→07:31)
[2019-11-21] MEDS ORDERED: DEXTROSE 40% GEL 15 GM TUBE PO PRN ×4 (07:26→07:31)
[2019-11-21] MEDS: INSULIN REG, HUMAN 100 UNIT/ML 3 ML VIAL (PYX) SUBCUT SCH ×3 (07:36→17:25)
[2019-11-21] MEDS ORDERED: MAG HYDROX/AL HYDROX/SIMETH SUSP 30 ML UDCUP PO ONE (07:41)
[2019-11-21] MEDS ORDERED: MAG HYDROX/AL HYDROX/SIMETH SUSP 30 ML UDCUP ONE (07:45)
[2019-11-21] MEDS ORDERED: OXYTOCIN/NORMAL SALINE 500 ML IV PRN (08:40)
[2019-11-21] MEDS ORDERED: DEXTROSE 5%-1/2 NORMAL SALINE 500 ML IV PRN (09:29)
[2019-11-21] MEDS ORDERED: NALBUPHINE HCL INJ 10 MG/1 ML AMPULE INJ ONE (10:46)
[2019-11-21] MEDS ORDERED: PROMETHAZINE HCL INJ 25 MG/1 ML VIAL IV ONE (10:46)
[2019-11-21] MEDS ORDERED: NALBUPHINE HCL INJ 10 MG/1 ML AMPULE ONE (10:58)
[2019-11-21] MEDS ORDERED: PROMETHAZINE HCL INJ 25 MG/1 ML VIAL ONE ×2 (10:58→14:31)
[2019-11-21] MEDS ORDERED: NORMAL SALINE 250 ML IV PRN ×2 (12:14)
[2019-11-21] MEDS ORDERED: CEFAZOLIN 2 GM/D5W RTU 2 GM/50 ML RTUPB IV ONE (12:15)
[2019-11-21] MEDS ORDERED: CITRIC ACID/SODIUM CITRATE ORAL SOLN 15 ML UDCUP ONE (12:15)
[2019-11-21] MEDS ORDERED: METHYLERGONOVINE MALEATE INJ/PF 0.2 MG/1 ML AMPULE ONE (12:27)
[2019-11-21] MEDS ORDERED: LOPERAMIDE HCL 2 MG CAPSULE ONE (12:27)
[2019-11-21] MEDS ORDERED: CARBOPROST TROMETHAMINE INJ 250 MCG/1 ML AMPULE ONE (12:27)
[2019-11-21] MEDS ORDERED: MIDAZOLAM 2 MG/2 ML INJ ONE (12:34)
[2019-11-21] MEDS ORDERED: FENTANYL CITRATE INJ/PF 100 MCG/2 ML AMPUL ONE ×4 (12:34→15:23)
[2019-11-21] MEDS ORDERED: MORPHINE SULFATE 10 MG/ML INJ ONE (12:34)
[2019-11-21] MEDS ORDERED: OXYTOCIN 10 UNIT/ML VIAL ONE (12:34)
[2019-11-21] MEDS ORDERED: ONDANSETRON HCL INJ/PF 4 MG/2 ML SDV ONE (12:35)
[2019-11-21] MEDS ORDERED: PROMETHAZINE HCL INJ 25 MG/1 ML VIAL IV PRN ×3 (13:12→14:19)
[2019-11-21] MEDS ORDERED: MEPERIDINE HCL/PF INJ 25 MG/1 ML DISP.SYRIN IV PRN (13:12)
[2019-11-21] MEDS ORDERED: ONDANSETRON HCL INJ/PF 4 MG/2 ML SDV IV PRN (13:12)
[2019-11-21] MEDS ORDERED: DIPHENHYDRAMINE HCL 50 MG/ML VIAL IV PRN (13:12)
[2019-11-21] MEDS ORDERED: FENTANYL CITRATE INJ/PF 100 MCG/2 ML AMPUL IV PRN ×2 (13:12)
[2019-11-21] MEDS ORDERED: DIPH/PERTUSS(ACELL)/TETANUS VAC/PF 0.5 ML SYR (>=10YO) IM PRN (14:19)
[2019-11-21] MEDS ORDERED: OXYCODONE-ACETAMINOPHEN 5-325 MG TABLET PO PRN (14:19)
[2019-11-21] MEDS ORDERED: RINGERS SOLUTION,LACTATED 1,000 ML IV PRN (14:19)
[2019-11-21] MEDS ORDERED: ACETAMINOPHEN 1,000 MG/100 ML RTUPB IV PRN (14:19)
[2019-11-21] MEDS ORDERED: MEASLES,MUMPS&RUBELLA VACC/PF 0.5 ML VIAL SUBCUT PRN (14:19)
[2019-11-21] MEDS ORDERED: SIMETHICONE 80 MG TAB.CHEW PO PRN (14:19)
[2019-11-21] MEDS ORDERED: OXYTOCIN/0.9 % SODIUM CHLORIDE 30 UNIT/500 ML RTUINJ IV PRN (14:19)
[2019-11-21] MEDS ORDERED: ACETAMINOPHEN 325 MG TABLET PO PRN (14:19)
[2019-11-21] MEDS ORDERED: HYDROMORPHONE HCL INJ/PF 2 MG/ML AMPULE ONE (14:31)
--- NOTE | 2019-11-21 14:31 | Operative Report ---
Operative Report DATE OF SURGERY: 11/21/19 PREOPERATIVE DIAGNOSIS: IUP at 37 weeks and 2 days, premature rupture of membra jakub, nonreassuring heart tones, previous , undesired fertility, previous tubal ligation POSTOPERATIVE DIAGNOSIS: Same OPERATION: Repeat low transverse hysterotomy section with Metz tubal ligation SURGEON: BETTYE WAITE ANESTHESIA: Spinal TISSUE REMOVED OR ALTERED: Placenta and bilateral fallopian tube segments COMPLICATIONS: None ESTIMATED BLOOD LOSS: 1000 cc INTRAOPERATIVE FINDINGS: Dense fascial adhesions multiple adhesions of the small bowel to the posterior aspect of the uterus bladder adhesed to the lower uterine segmentm both fallopian tubes had no evidence of previous tubal ligation, one clip was found on the left ovary, there were multiple filmy adhesions of the fallopian tubes to the uterine fundus however it was evident that the fallopian tubes were indeed patent PROCEDURE: The patient was taken to the operating room, prepared and draped in anormal sterile fashion in a supine position with a leftward tilt. A transverse skin incision was made with a scalpel and carried through tothe underlying layer of fascia with the same scalpel. The fascia was excised in the midline and extended laterally with Milady. The fascia was then dissected from the rectus muscle sharply with Milady and the rectus muscle was divided and the peritoneal cavity was entered sharply with the same Metzenbaum. With good visualization of the bladder and the uterus the bladder blade was inserted. The hysterotomy was nicked with a scalpel and extended laterally with surgeon finger fraction. The infant was thendelivered atraumatically. The nose and mouth were suctioned with a suction bulb, the cord was clamped and cut and handed off to awaiting pediatricians. Cord blood was collected. The placenta was removed manually. The uterus was exteriorized and cleared of clots and debris. The hysterotomy was closed with 0 Monocryl in a running, locked fashion. A second layer of the same suture was used to imbricate to ensure hemostasis. Attention was then turned to the fallopian tubes where the right fallopian tube was grasped with a Cathy, the mesosalpinx was divided with a Bovie. a 3-1/2 cm segment of fallopian tube was tied off with 2 pieces of 2-0 chromic.this segment was ligated using Metzenbaums and the pedicles were made hemostatic with the Bovie. This procedure was repeated on the left fallopian tube without difficulty. The uterus was returned to the abdomen and peritoneal cavity was cleared of clots and debris. The pedicles were inspected and they were still hemostatic. The rectus muscle and peritoneum were repaired with mattress stitch of 2-0 Chromic. The fascia was closed with 0-Vicryl. The subcutaneous layer was closed with plain catgut and the skin was closed with 4-0 Vicryl. The patient tolerated the procedure well. Sponge, lap, and needle counts correct x2 and the patient was taken to recovery in stable condition.
[2019-11-21] MEDS: FENTANYL CITRATE INJ/PF 100 MCG/2 ML AMPUL IV PRN ×2 (15:24→15:30)
[2019-11-21] MEDS ORDERED: ACETAMINOPHEN 1,000 MG/100 ML RTUPB IV ONE (15:32)
--- NOTE | 2019-11-21 16:16 | Delivery Summary ---
Del Sum A-C Datetime Report Generated by CPN: 11/21/2019 16:16 DELIVERY PERSONNEL DELIVERY PERSONNEL: [id number] Delivery Doctor:: Hyacinth Montiel MD CHARGE LOADER:: August Harley CRNA Graduate Advisor:: Meka Chopra, RN Lathe Spotter/FIXED CAPITAL CLERK: Geno Blanchard, HEALTH ADMINISTRATION TEACHER Lathe Spotter/FIXED CAPITAL CLERK: Francesca Oseguera, HEALTH ADMINISTRATION TEACHER MATERNAL INFORMATION Delivery Anesthesia: Spinal Medications After Delivery: Pitocin Drip 20 Units/1000ml NSS Delivery QBL: 780 Maternal Complications: None LABOR SUMMARY EDC: 12/10/2019 00:00 No. Babies in Womb: 1 Attempted: Yes Labor Anesthesia: None LABOR INFORMATION Reason for Induction: Not Applicable Oxytocin: Augmentation Group B Beta Strep: negative Antibiotics # of Doses: 1 Antibiotics Time of Last Dose: 11/21/2019 12:56 Name of Antibiotic Given: Ancef 2 gm Steroids Given: None Reason Steroids Not Administered: Not Applicable MEMBRANES Membranes Rupture Method: Spontaneous Rupture of Membranes: 11/20/2019 22:00 Length of Rupture (hr): 15.48 Amniotic Fluid Color: Clear Amniotic Fluid Amount: Small Amniotic Fluid Odor: Normal STAGES OF LABOR Stage 3 hr: 0 Stage 3 min: 1 VAGINAL DELIVERY Episiotomy: None Laceration #1: None Laceration Extension #1: N/A Laceration Repair: Not Applicable Sponge Count Correct: N/A Sharps Count Correct: N/A CSECTION DELIVERY Primary Indication: Nonreassuring Status CSection Urgency: Non-Scheduled CSection Incidence: Repeat Labor: No Labor Elective: Failed CSection Incision: Lower Uterine Transverse Sterilization Procedure: [place] BABY A INFORMATION Infant Delivery Date/Time: 11/21/2019 13:29 Method of Delivery: Nurse Controlled Delivery: No Born in Route : No : Failed Forceps: N/A Vacuum Extraction: Successful Shoulder Dystocia : No ASSISTED DELIVERY BABY A Vacuum Number of Pulls: 1 Vacuum Number of PopOffs: 1 Vacuum Medical Office Coordinator: kiwi PRESENTATION/POSITION BABY A Presentation: Cephalic Cephalic Presentation: Vertex Breech Presentation: N/A PLACENTA INFORMATION BABY A Placenta Delivery Time : 11/21/2019 13:30 Placenta Method of Delivery: Manual Removal Placenta Status: Delivered SCORES BABY A Heart Rate 1 min: >100 bpm Resp Effort 1 min: Slow, Irregular Reflex Irritability 1 min: Cough or Sneeze or Pulls Away Muscle Tone 1 min: Active Motion Color 1 min: Blue/Pale Resuscitation Effort 1 min: Tactile Stimulation; Oxygen; PPV/NCPAP SCORE 1 MIN: 7 Heart Rate 5 min: >100 bpm Resp Effort 5 min: Good Cry Reflex Irritability 5 min: Cough or Sneeze or Pulls Away Muscle Tone 5 min: Active Motion Color 5 min: Blue/Pale Resuscitation Effort 5 min: Oxygen; PPV/NCPAP SCORE 5 MIN: 8 INFANT INFORMATION BABY A Gestational Age at Delivery: 37.2 Gestational Status: Early Term- 37- 38.6 Weeks Infant Outcome : Liveborn Infant Condition : Stable Sex: Male IDENTIFICATION BABY A Infant Verification Date/Time: 11/21/2019 13:37 ID Band Number: [id number] Mother's Name Verified: Yes Infant RN Verifying : Zachary Edge RN, C. Gallia RN WEIGHT/LENGTH BABY A Infant Birthweight (gm): 2800 Infant Weight (lb): 6 Infant Weight (oz): 3 Length (in): 19.50 Length (cm): 49.53 CORD INFORMATION BABY A No. Cord Vessels: 3 Nuchal Cord : N/A Cord Blood Taken: Yes-For Eval (Mom's Blood Type - or O+) Infant Suction: None ASSESSMENT BABY A Skin to Skin: Yes BABY B INFORMATION : N/A
--- NOTE | 2019-11-21 16:16 | Birth Certificate Data ---
Cert Data Datetime Report Generated by CPN: 11/21/2019 16:16 CERTIFICATE DATA 47a. Care: Yes (08/03/2019 12:04:Meka Chopra RN) 47b. Date of First Visit: 05/13/2019 00:00 (08/03/2019 12:04:Meka Chopra RN) 47c. Date of Last Visit: 11/18/2019 00:00 (08/03/2019 12:04:Elaine Higgins RN) 47d. Number of Visits: 14 (08/03/2019 12:04:Elaine Higgins RN) 48a. Number of Prev Live Births: 4 (08/03/2019 12:04:Meka Chopra RN) 48b. Now Livin (08/03/2019 12:04:Angelina Mclain RN) 48c. Live Births Now : 0 (08/03/2019 12:04:QS system process) 48d. Date of Last Live : 01/27/2009 00:00 (08/03/2019 12:04:Elaine Higgins RN) 48e. Losses: 1 (08/03/2019 12:04:Meka Chopra RN) RISK FACTORS IN THIS 49a. Diabetes: Yes (08/03/2019 12:04:Meka Chopra RN) Type of Diabetes: Type II - NIDDM (08/03/2019 12:04:Meka Chopra RN) 49b. Hypertension: Yes (08/03/2019 12:04:Meka Chopra RN) Type of Hypertension: Gestational (PIH, Pre-eclampsia) (08/03/2019 12:04:Elaine Higgins RN) 49c. Previous Births: 2 (08/03/2019 12:04:Angelina Mclain RN) 49d. Stillborns: No (08/03/2019 12:04:Meka Chopra RN) 49d. IUGR: No (08/03/2019 12:04:Meka Chopra RN) 49e. Infertility Treatment: No (08/03/2019 12:04:Elaine Higgins RN) 49f. Previous Cesareans: 1 (08/03/2019 12:04:Meka Chopra RN) Mother's Height 50b. Height Inches: 60 (10/26/2019 15:09:QS system process) Mother's Weight 51a. Pre- Weight (lbs): 188 (08/03/2019 12:04:Meka Chopra RN) 51b. Weight at Delivery (lbs): 178 (10/26/2019 15:23:QS system process) 52. Dt Last Normal Menses Began: 03/05/2019 00:00 (08/03/2019 12:04:Elaine Higgins RN) Infections Present/Treated 53a. Gonorrhea: No (08/03/2019 12:04:Elaine Higgins RN) Results this Hospital Visit : Negative (08/03/2019 12:04:Angeli Bunch RN) 53b. Syphilis: No (08/03/2019 12:04:Elaine Higigns RN) 53c. Chlamydia: No (08/03/2019 12:04:Elaine Higgins RN) Results this Hospital Visit: Negative (08/03/2019 12:04:Angeli Bunch RN) 53d. Hepatitis B: No (08/03/2019 12:04:Elaine Higgins RN) Results this Hospital Visit: Negative (08/03/2019 12:04:Angelina Mclain RN) 53e. Hepatitis C: Positive (08/03/2019 12:04:Meka Chopra RN) 53h. Mother Tested for HBsAG: Yes (08/03/2019 12:04:Meka Chopra RN) 53i. Date Tested: 05/13/2019 00:00 (08/03/2019 12:04:Angeli Bunch RN) 53j. Test Result: Negative (08/03/2019 12:04:Angelina Mclain RN) Obstetric Procedures 54a, b, c. Obstetric Procedures: Ultrasound (08/03/2019 12:04:Elaine Higgins RN) Cigarette Smoking Cigarette Smoking: Never Smoker. [id number] (08/03/2019 12:04:Shasha De LaO RN) 55a. 3 Months Before Preg - Ci (08/03/2019 12:04:Elaine Higgins RN) 55a. Packs: 0 (08/03/2019 12:04:Elaine Higgins RN) 55b. 1st Trimester of Preg- Ci (08/03/2019 12:04:Elaine Higgins RN) 55b. Packs: 0 (08/03/2019 12:04:Elaine Higgins RN) 55c. 2nd Trimester of Preg- Ci (08/03/2019 12:04:Elaine Higgins RN) 55c. Packs: 0 (08/03/2019 12:04:Elaine Higgins RN) 55d. 3rd Trimester of Preg- Ci (08/03/2019 12:04:Elaine Higgins RN) 55d. Packs: 0 (08/03/2019 12:04:Elaine Higgins RN) Onset of Labor 56a. PROM >12 Hrs: 15.48 (08/03/2019 12:04:QS system process) 57a. Induction of Labor: Augmentation (08/03/2019 12:04:Liya Edge RN) 57c. Non-Vertex Presentation A: Vertex (08/03/2019 12:04:Liya Edge RN) 57d. Steroids - Lung Mat: None (08/03/2019 12:04:Meka Chopra RN) 57d. Steroids - Lung Mat: Not Applicable (08/03/2019 12:04:Meka Chopra RN) 57e. Antibiotics During Labor: 11/21/2019 12:56 (08/03/2019 12:04:Meka Chopra RN) 57f. Mat [place] or Temp >100.4: 98.2 (08/03/2019 12:04:Meka Chopra RN) 57g. Moderate/Heavy Meconium: Clear (08/03/2019 12:04:Meka Chopra RN) 57h. Intolerance of Labor: Nonreassuring Status (08/03/2019 12:04:Liya Edge RN) 57i. Epidural/Spinal Anesthesia: None (08/03/2019 12:04:Liya Edge RN) Method of Delivery 58a. Forceps - Unsuccessful A: N/A (08/03/2019 12:04:Liya Edge RN) 58b. Vacuum - Unsuccessful A: Successful (08/03/2019 12:04:Meka Chopra RN) 58c. Presentation at 58c. Presentation at - A : Vertex (08/03/2019 12:04:Liya Edge RN) 58c. Presentation at - A : N/A (08/03/2019 12:04:Liya Edge RN) 58c. Presentation at - A : Cephalic (11/21/2019 04:20:Angeli Bunch RN) Final Route and Method of Del 58d. Baby A Route/Delivery: (08/03/2019 12:04:Liya Edge RN) 58e. Trial of Labor Attempted: Yes (08/03/2019 12:04:Liya Edge RN) 58e. Trial of Labor Attempted A: Failed (08/03/2019 12:04:Liya Edge RN) 58e. Trial of Labor Attempted B: N/A (08/03/2019 12:04:Meka Chopra RN) Maternal Morbidity 59b. 3rd or 4th Degree Lacs: None (08/03/2019 12:04:Liya Edge RN) Birthweight Baby A: 2800 (08/03/2019 12:04:Lakesha Clifford RN) 60a. Pounds : 6 (08/03/2019 12:04:QS system process) 60b. Ounces: 3 (08/03/2019 12:04:QS system process) 61. GA at Delivery Baby A: 37.2 (08/03/2019 12:04:Liya Edge RN) : Early Term- 37- 38.6 Weeks (08/03/2019 12:04:QS system process) 62a. 5 Minute Baby A: 8 (08/03/2019 12:04:QS system process)
[2019-11-21] MEDS: HYDROMORPHONE HCL INJ/PF 2 MG/ML AMPULE IV PRN ×2 (17:49→22:34)
[2019-11-21] MEDS ORDERED: IBUPROFEN 800 MG TABLET PO SCH (18:00)
[2019-11-21] MEDS: DOCUSATE SODIUM 100 MG CAPSULE PO SCH (19:46)
[2019-11-21] MEDS: OXYCODONE-ACETAMINOPHEN 5-325 MG TABLET PO PRN (19:46)
[2019-11-21] MEDS: KETOROLAC TROMETHAMINE INJ/PF 30 MG/1 ML SDV IV SCH (21:04)
[2019-11-22] MEDS: OXYCODONE-ACETAMINOPHEN 5-325 MG TABLET PO PRN ×5 (00:55→21:22)
[2019-11-22] MEDS: HYDROMORPHONE HCL INJ/PF 2 MG/ML AMPULE IV PRN (02:07)
[2019-11-22 04:35] LABS: HEMATOCRIT 36.3 % (36.0-47.0); HEMOGLOBIN 12.5 g/dL (12.0-15.5); MEAN CORPUSCULAR HEMOGLOBIN 30.3 pg (27.0-33.4); MEAN CORPUSCULAR HGB CONC 34.5 g/dL (32.0-36.0); MEAN CORPUSCULAR VOLUME 88 fl (80-97); PLATELET COUNT 184 10^3/uL (150-450); RED BLOOD COUNT 4.13 10^6/uL (3.72-5.28); RED CELL DISTRIBUTION WIDTH 14.1 % (11.5-14.0); WHITE BLOOD COUNT 13.2 10^3/uL (4.0-10.5)
[2019-11-22] MEDS: KETOROLAC TROMETHAMINE INJ/PF 30 MG/1 ML SDV IV SCH ×2 (05:50→13:01)
[2019-11-22] MEDS: INSULIN REG, HUMAN 100 UNIT/ML 3 ML VIAL (PYX) SUBCUT SCH ×4 (06:54→19:22)
[2019-11-22] MEDS: DOCUSATE SODIUM 100 MG CAPSULE PO SCH ×2 (09:33→17:14)
[2019-11-22] MEDS: PRENATAL VITAMIN W DHA CAPSULE PO SCH (09:33)
--- NOTE | 2019-11-22 10:27 | PDOC PROGRESS REPORT ---
Subjective-OB Progress Note for:: 11/22/19 - POD#1, pt doing well, O+, Rubella Immune, breast and bottlefeeding. Hx Type 2 DM. Physical Exam (OB) Vital Signs: Temp Pulse Resp BP Pulse Ox 97.9 F 95 16 107/82 96 11/22/19 09:15 11/22/19 07:28 11/22/19 07:28 11/22/19 07:28 11/22/19 07:28 Intake & Output 11/21/19 11/22/19 11/23/19 06:59 06:59 06:59 Intake Total 2834 340 Output Total 1750 Balance 1084 340 Weight 81 kg - General General Appearance: Appears well, Alert In distress: None - PIH/Pre-Eclampsia Clonus: Positive Headache: Absent Epigastric Pain: No Visual Changes: No - Dressing Removed: No Incision: Dressing - Dressing removed, incision is healing well, no signs of he matoma or bruising at incision. Abdominal bandage gentley placed over incision w/ paper tape applied to keep area clean/ dry. Closure Type: steri-strips applied this morning to better approximate skin closure. - Bilateral Tubal Ligation Dressing Removed: No - c/s/ pressure drsg. Site: Dressing - Maternal Morbidity 59. Maternal Morbidity (serious complications experinced by the mother associated with labor and delivery: None of the above - Lochia Lochia Amount: Small 10-25 ml Lochia Color: Rubra/Red - Abdomen Description: Soft Hernia Present: No Fundal Description: Firm, Midline Fundal Height: u/u - u/2 - Respiratory Respiratory Status: No respiratory distress Breath sounds: Clear - Cardiovascular Rhythm: Regular Heart Sounds: Normal auscultation - Abdominal Abdominal Notes: hypoactive bowel sounds, abdoman soft - Genitourinary Genitourinary Note: voiding - Extremities Upper extremity: Normal inspection Lower extremities: Edema - Neurological Cognition: Normal Orientation: AAOx4 - Psychological Associated symptoms: Normal affect, Normal mood - Skin Skin Temperature: Warm Skin Moisture: Dry Objective-Diagnostic Laboratory: 11/22/19 04:29 11/21/19 11/22/19 05:06 04:29 WBC 13.2 H RBC 4.13 Hgb 12.5 Hct 36.3 MCV 88 MCH 30.3 MCHC 34.5 RDW 14.1 H Plt Count 184 Blood Type O POSITIVE Antibody Screen NEGATIVE Assessment and Plan(PN) - Assessment and Plan (1) S/P repeat low transverse Is this a current diagnosis for this admission?: Yes (2) Type 2 diabetes mellitus 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
[2019-11-22] MEDS: IBUPROFEN 800 MG TABLET PO SCH ×2 (17:14→23:58)
[2019-11-23] MEDS: IBUPROFEN 800 MG TABLET PO SCH ×3 (05:53→17:40)
[2019-11-23] MEDS: INSULIN REG, HUMAN 100 UNIT/ML 3 ML VIAL (PYX) SUBCUT SCH ×4 (05:56→21:41)
[2019-11-23] MEDS: DOCUSATE SODIUM 100 MG CAPSULE PO SCH ×2 (09:08→17:52)
[2019-11-23] MEDS: PRENATAL VITAMIN W DHA CAPSULE PO SCH (09:08)
[2019-11-23] MEDS: OXYCODONE-ACETAMINOPHEN 5-325 MG TABLET PO PRN ×2 (10:22→21:39)
[2019-11-23] MEDS ORDERED: BISACODYL 10 MG SUPP.RECT PR ONE (11:10)
--- NOTE | 2019-11-23 11:13 | PDOC PROGRESS REPORT ---
Subjective-OB Progress Note for:: 11/23/19 Subjective: Pt is sore, reports passing gas, reg diet and voiding w/o difficulty. Baby is not going home today. Physical Exam (OB) Vital Signs: Temp Pulse Resp BP Pulse Ox 97.9 F 99 18 134/72 H 96 11/23/19 07:35 11/23/19 07:35 11/23/19 07:35 11/23/19 07:35 11/23/19 07:35 Intake & Output 11/22/19 11/23/19 11/24/19 06:59 06:59 06:59 Intake Total 2834 1979 400 Output Total 1750 Balance 1084 1979 400 - Dressing Removed: Yes Incision: Well Approximated Closure Type: Steri-Strips - Bilateral Tubal Ligation Dressing Removed: Yes Site: Well Approximated - Maternal Morbidity 59. Maternal Morbidity (serious complications experinced by the mother associated with labor and delivery: None of the above - Lochia Lochia Amount: Small 10-25 ml Lochia Color: Rubra/Red - Abdomen Description: Tender, Soft, Round, Distended Hernia Present: No Flatus Presence: Present Stool: No Fundal Description: Firm, Midline Fundal Height: u/u - u/2 Abdomen Note: Dr. 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
[2019-11-24] MEDS: IBUPROFEN 800 MG TABLET PO SCH ×2 (00:54→06:29)
[2019-11-24 04:35] VITALS: BP 119/70
[2019-11-24] MEDS: INSULIN REG, HUMAN 100 UNIT/ML 3 ML VIAL (PYX) SUBCUT SCH ×2 (06:55→10:35)
[2019-11-24] MEDS: PRENATAL VITAMIN W DHA CAPSULE PO SCH (09:40)
[2019-11-24] MEDS: DOCUSATE SODIUM 100 MG CAPSULE PO SCH (09:40)
[2019-11-24] MEDS: OXYCODONE-ACETAMINOPHEN 5-325 MG TABLET PO PRN (09:40)
--- NOTE | 2019-11-24 11:28 | PDOC DISCHARGE SUMMARY ---
Impression - Admit/DC Date/PCP Admission Date/Primary Care Provider: 11/21/19 04:43 Discharge Date: 11/24/19 - Discharge Diagnosis (1) S/P repeat low transverse Is this a current diagnosis for this admission?: Yes (2) Type 2 diabetes mellitus Is this a current diagnosis for this admission?: Yes (3) Hepatitis C Is this a current diagnosis for this admission?: Yes - Assessment Summary: 39yo s/p repeat c/s with tubal stable and ready for discharge, understands all warning s/s and reasons to rtc/[facility] prior to next scheduled visit. Pt asked questions and verbalized understanding. - Additional Information Resuscitation Status: Full Code Discharge Diet: As Tolerated, Regular Discharge Activity: Activity As Tolerated, No Driving, No Lifting Over 10 Pounds, No Lifting/Push/Pulling, Pelvic Rest, Slowly Increase Activity, No tub bath Prescriptions: Oxycodone HCl/Acetaminophen [Percocet 5-325 mg Tablet] 1 tab PO Q4HP PRN #20 tablet PRN Reason: For Pain Scale 3-5 Ibuprofen [Motrin 800 mg Tablet] 800 mg PO Q8HP PRN #20 tablet PRN Reason: For Pain Scale 1-3 Docusate Sodium [Colace 100 mg Capsule] 100 mg PO BID #90 capsule Home Medications: Aspirin [Aspirin 81 mg Chewable Tablet] 81 mg PO DAILY 08/03/19 Insulin Regular, Human [Humulin R (Reg) Insulin 100 unit/mL] 4 unit SUBCUT BIDACBS 08/03/19 NPH, Human Insulin Isophane [Humulin N (NPH) Insulin 100 unit/mL] 8 unit SUBCUT BIDACBS 08/03/19 Pnv 102/Iron/Folate 1/Dss/Dha [Vitafol Fe+ Docusate Combo Pck] 1 each PO DAILY 08/03/19 Insulin Regular, Human [Humulin R (Pyxis) Insulin 100 Unit/ml 3Ml] 6 unit SUBCUT ACSUPPER 10/24/19 NPH, Human Insulin Isophane [Humulin N (NPH) Insulin 100 Unit/1 ml 3 ml] 10 unit SUBCUT ACSUPPER 10/24/19 Docusate Sodium [Colace 100 mg Capsule] 100 mg PO BID #90 capsule 11/24/19 Ibuprofen [Motrin 800 mg Tablet] 800 mg PO Q8HP PRN #20 tablet 11/24/19 Oxycodone HCl/Acetaminophen [Percocet 5-325 mg Tablet] 1 tab PO Q4HP PRN #20 tablet 11/24/19 Hospital Course 59. Maternal Morbidity (serious complications experinced by the mother associated with labor and delivery: None of the above Results Laboratory Results: WBC 13.2 10^3/uL (4.0-10.5) H 11/22/19 04:29 RBC 4.13 10^6/uL (3.72-5.28) 11/22/19 04:29 Hgb 12.5 g/dL (12.0-15.5) 11/22/19 04:29 Hct 36.3 % (36.0-47.0) 11/22/19 04:29 MCV 88 fl (80-97) 11/22/19 04:29 MCH 30.3 pg (27.0-33.4) 11/22/19 04:29 MCHC 34.5 g/dL (32.0-36.0) 11/22/19 04:29 RDW 14.1 % (11.5-14.0) H 11/22/19 04:29 Plt Count 184 10^3/uL (150-450) 11/22/19 04:29 Lymph % (Auto) 17.6 % (13-45) 11/21/19 05:06 [place] % (Auto) 6.6 % (3-13) 11/21/19 05:06 Eos % (Auto) 1.8 % (0-6) 11/21/19 05:06 Baso % (Auto) 0.7 % (0-2) 11/21/19 05:06 Absolute Neuts (auto) 6.3 10^3/uL (1.7-8.2) 11/21/19 05:06 Absolute Lymphs (auto) 1.5 10^3/uL (0.5-4.7) 11/21/19 05:06 Absolute Monos (auto) 0.6 10^3/uL (0.1-1.4) 11/21/19 05:06 Absolute Eos (auto) 0.2 10^3/uL (0.0-0.6) 11/21/19 05:06 Absolute Basos (auto) 0.1 10^3/uL (0.0-0.2) 11/21/19 05:06 Seg Neutrophils % 73.3 % (42-78) 11/21/19 05:06 POC Glucose 83 mg/dL (70-110) 11/24/19 10:02 Urine Color YELLOW 11/21/19 04:14 Urine Appearance SLIGHTLY-CLOUDY 11/21/19 04:14 Urine pH 5.0 (5.0-9.0) 11/21/19 04:14 Ur Specific [place] 1.023 11/21/19 04:14 Urine Protein 30 mg/dL (NEGATIVE) H 11/21/19 04:14 Urine Glucose (UA) NEGATIVE mg/dL (NEGATIVE) 11/21/19 04:14 Urine Ketones NEGATIVE mg/dL (NEGATIVE) 11/21/19 04:14 Urine Blood NEGATIVE (NEGATIVE) 11/21/19 04:14 Urine Nitrite NEGATIVE (NEGATIVE) 11/21/19 04:14 Urine Bilirubin NEGATIVE (NEGATIVE) 11/21/19 04:14 Urine Urobilinogen NEGATIVE mg/dL (<2.0) 11/21/19 04:14 Ur Leukocyte Esterase LARGE (NEGATIVE) H 11/21/19 04:14 Urine Ascorbic Acid NEGATIVE (NEGATIVE) 11/21/19 04:14 Membranes Rupture POSITIVE (NEGATIVE) H 11/21/19 04:14 Urine Opiates Screen NEGATIVE 11/21/19 04:14 Urine Methadone Screen NEGATIVE 11/21/19 04:14 Ur Barbiturates Screen NEGATIVE 11/21/19 04:14 Ur Phencyclidine Scrn NEGATIVE 11/21/19 04:14 Ur Amphetamines Screen NEGATIVE 11/21/19 04:14 U Benzodiazepines Scrn NEGATIVE 11/21/19 04:14 Urine Cocaine Screen NEGATIVE 11/21/19 04:14 U Marijuana (THC) Screen NEGATIVE 11/21/19 04:14 RPR NONREACTIVE (NONREACTIVE) 11/21/19 05:06 Blood Type O POSITIVE 11/21/19 05:06 Antibody Screen NEGATIVE 11/21/19 05:06 Crossmatch See Detail 11/21/19 05:06
== END 2019-11-24 13:07 | disposition home or self-care (01) | DRG 784 ==
LOC: LC 04:01 → LR 04:43 → 2S 16:30
PROVIDERS: ADMIT Obstetrics & Gynecology; ATTEND Obstetrics & Gynecology
PROC: 10D00Z1 Extraction of Products of Conception, Low, Open Approach (ICD-10-PCS; principal; 2019-11-21)
PROC: 0UB70ZZ Excision of Bilateral Fallopian Tubes, Open Approach (ICD-10-PCS; 2019-11-21)
DX: O34.211 Maternal care for low transverse scar from previous cesarean delivery (principal); O98.42 Viral hepatitis complicating childbirth; Z30.2 Encounter for sterilization; O24.92 Unspecified diabetes mellitus in childbirth; O76 Abnormality in fetal heart rate and rhythm complicating labor and delivery; B18.2 Chronic viral hepatitis C; Z79.899 Other long term (current) drug therapy; Z79.4 Long term (current) use of insulin; Z79.82 Long term (current) use of aspirin; Z88.6 Allergy status to analgesic agent; Z3A.37 37 weeks gestation of pregnancy; Z37.0 Single live birth
CPT/HCPCS: 1961; 36415; 80307; 81005; 82962; 84112; 85025; 86592; 86850; 86900; 86901; 86920; 88302; 88307; 94760; 94799; 99140; J0131; J0690; J1170; J1885; J2210; J2250; J2270; J2300; J2405; J2550; J2590; J3010; J3490; J7120